=== PATIENT | male | born 1960 | race Caucasian/White ===

== ENCOUNTER 2017-04-07 10:39 | Day surgery (SDC) | payer OTHER ==
[~2017-04-07] VITALS: Ht 180.3 cm; Wt 89.4 kg
[~2017-04-07 10:39] MED LIST: SYN15 PO
[2017-04-07 11:07] VITALS: Ht 180.3 cm; Wt 89.4 kg
[2017-04-07 11:49] VITALS: BP 142/67; PULSE 65; RESP 16
[2017-04-07] MEDS ORDERED: PROPOFOL 60 ML ONE (13:41)
--- NOTE | 2017-04-07 13:54 | OPPN ---
Date/Time of Note Date/Time of Note DATE: 04/07/17 TIME: 13:52 Proc Note GI Procedure Date 04/07/17 Indication: screening/surveillance Pre-procedure Diagnosis h/o polyps Post-procedure Diagnosis polyps Procedure Performed: Colonoscopy Surgeon see signature line Florist Manager none Anesthesia Type: MAC Tourniquet Time none EBL none Transfusion required none Biopsy 1: cecal polyps Biopsy 2: sc polyp Grafts/Implants none Tubes/Drains none Complication(s) none Procedure Description Impression: 1. Cecal polyp x 3 - removed by bx 2. SC polyp x 1 removed by bx 3. Diverticulosis 4. Internal Hemorrhoids SANDOR GUZMAN MD Apr 07, 2017 13:54
[2017-04-07 14:15] VITALS: BP 135/94; PULSE 58; RESP 18
--- NOTE | 2017-04-07 14:16 | GILP ---
DATE OF PROCEDURE: 04/07/2017 INDICATIONS: Followup of adenomatous colonic polyps. FINDINGS: After informed consent, the patient was placed in lateral position and sedated per anesth esia. The Olympus video colonoscope was easily passed in patient's rectum. The instrument was adva nced to the sigmoid, descending, transverse, ascending colon to the cecum. The appendiceal orifice and ileocecal valve were identified. The ileocecal valve was traversed. Normal ileum was encounter ed. The prep here and throughout the colon was only fair. This was lavaged clear as best could be accomplished. In the cecum, there were 3 polypoid lesions seen. These ranged in size from 2-4 mm. These were removed in total with jumbo biopsy forceps. The instrument was then removed to the asce nding colon were a number of diverticula were noted. The instrument was removed through the transve rse, descending, and sigmoid colons where again the preparation was only fair. In the sigmoid colon , a 4 mm polypoid lesion was seen and removed in total with jumbo biopsy forceps. The instrument wa s removed from the patient's rectum. The rectum turnaround procedure was performed. Internal hemor rhoids were noted. The instrument was removed. The patient's rectum. Patient tolerated procedure well. COMPLICATIONS: None. WITHDRAWAL TIME: 20 minutes. PREPARATION OF COLON: Fair. IMPRESSION 1. Multiple colon polyps removed as above. 2. Diverticulosis. 3. Internal hemorrhoids. 4. Fair prep. PLAN: 1. Postoperative instructions given to patient. 2. Will review the importance of preparation with patient and need for sooner followup than otherwi se, given the marginal preparation noted above. Dictated By: SANDOR BERMUDEZ/APOLINAR Conf#: [id number] DID#: [id number]
== END 2017-04-07 17:00 | disposition home or self-care (01) ==
LOC: GIL 10:39
PROVIDERS: ATTEND Internal Medicine Gastroenterology
DX: D12.0 Benign neoplasm of cecum (principal); D12.5 Benign neoplasm of sigmoid colon; K57.90 Diverticulosis of intestine, part unspecified, without perforation or abscess without bleeding; K64.4 Residual hemorrhoidal skin tags; I10 Essential (primary) hypertension; E03.9 Hypothyroidism, unspecified; F17.200 Nicotine dependence, unspecified, uncomplicated